=== PATIENT | female | born 1980 | race Caucasian/White ===

== ENCOUNTER 2017-06-01 03:31 | Day surgery (SDC) | payer MEDICARE, MEDICAID ==
[~2017-06-01] VITALS: Ht 165.1 cm; Wt 79.8 kg
[~2017-06-01 03:31] MED LIST: ACE3 PO; ACET500T68 PO; ARIP15TA PO; ARIP5TAB28 PO; AZEL6DRO9 OP; BUPXL150 PO; CARB10DR OP; CLIN30GE15 TP; CYA1000 PO; DIA5 PO; DOC100 PO; FLUO40CA76 PO; HYDR-2966 PO; HYDR12.561 PO; KET10 PO; LEVE500T32 PO; LEVO125T77 PO; LEVO175T38 PO; LOR10 PO; MELA5TAB20 PO; MV,C1TAB35 PO; NAPR220C12 PO; NORG1TAB5 PO; NORG1TAB97 PO; OMEG-11 PO; OMEP-218 PO; POLY1DRO10 OP; VIT1CAPS34 PO; [UNRECOGNIZED DRUG - CODE] PO; [UNRECOGNIZED DRUG - CODE] TP; [UNRECOGNIZED DRUG - OTHER] PO; [UNRECOGNIZED DRUG - OTHER] TOP
[2017-06-01] MEDS ORDERED: LIDOCAINE/SOD BICARB 8.4% SYR ID ONE (07:45)
[2017-06-01] MEDS ORDERED: MIDAZOLAM 2 MG/2 ML VIAL IVP PRN (07:45)
[2017-06-01] MEDS ORDERED: NORMOSOL R SOLN(*) 1000 ML BAG 1,000 ML IV PRN (07:45)
[2017-06-01] MEDS ORDERED: FAMOTIDINE 20 MG TAB PO ONE (07:45)
[2017-06-01 09:21] VITALS: BP 116/73
[2017-06-01] MEDS ORDERED: LIDOCAINE MPF 1% 5 ML VIAL ONE (10:17)
[2017-06-01] MEDS ORDERED: PROPOFOL EMUL(*) 10MG/ML 20 ML 60 ML ONE (10:17)
[2017-06-01 10:36] VITALS: BP 123/73
[2017-06-01] MEDS ORDERED: LR(*) 1000 ML BAG 1,000 ML IV ONE (10:41)
--- NOTE | 2017-06-01 10:41 | Post Operative Note ---
Operative Note - [facility] Operative Day Date: Jun 01, 2017 Time: 10:40 Physicians Surgeon: Telly Anesthesia: General, Zoya Diagnosis Pre-Op Diagnosis: Developmental delay Didelphyic uterus Post-Op Diagnosis: Same Procedure Procedure(s): Breast and pelvic EUA Specimen Removed:(Maybe N/A): GC/Chlam and bilateral pap smear Fluids Estimated Blood Loss: None FAHAD PERSAUD MD Jun 01, 2017 10:41
--- NOTE | 2017-06-01 10:43 | Short(Outpt) Discharge Summary ---
Discharge Summary Departure Discharge to: Home, Self Care Discharge Instructions Home Meds Reported Medications Polyvinyl Alcohol/Povidone/Pf (REFRESH CLASSIC EYE DROPS) 1 Each Droperette, 1 EACH OP QID 05/28/17 Cyanocobalamin (Vitamin B-12) (VITAMIN B-12) 1,000 Mcg Tablet, 1000 MCG PO MON- WED-FRI 05/28/17 Vit A/Vit C/Vit E/Zinc/Copper (PRESERVISION AREDS SOFTGEL) 1 Each Capsule, 1 EACH PO BID, CAPSULE 05/28/17 Melatonin (MELATONIN) 5 Mg Tab.rapdis, 5 MG PO HS 05/28/17 Naproxen Sodium (ALEVE) 220 Mg Capsule, 220 MG PO TID Y for PAIN, CAPSULE 05/28/17 Norgestimate-Ethinyl Estradiol (MONONESSA) 1 Each Tablet, 1 TAB PO DAILY 05/28/17 Levetiracetam (Spritam) 500 Mg Tab.susp, 1 TAB PO BID 05/28/17 Levothyroxine Sodium (SYNTHROID) 175 Mcg Tablet, 175 MCG PO QDAY 05/28/17 Hydrochlorothiazide (HYDROCHLOROTHIAZIDE) 12.5 Mg Tablet, 1 TAB PO QDAY, TAB 05/28/17 Azelastine Hcl (AZELASTINE HCL) 6 Ml Drops, 1 DROP OP BID 05/28/17 Aripiprazole (Aripiprazole) 15 Mg Tablet, 1 TAB PO HS 05/28/17 Acetaminophen (TYLENOL EXTRA STRENGTH) 500 Mg Tablet, 2 TAB PO Q4-6H Y for PAIN , TAB 05/28/17 Diazepam (Valium) 5 Mg Tab, 5 MG PO PRN 01/10/12 Calcium Carb/Vit D3/Minerals (CALCIUM +D & MIN CHEW TAB) 1 Each Tab.chew, 1 EACH PO DAILY 01/10/12 Clindamycin Phos (CLINDAMYCIN 1% TOPICAL SOLN (PATIENT OWN)) 60 Ml Solution, 60 ML TOP DAILY 01/10/12 Sod Lactate/Amm Lact/Pot Lact (AMLACTIN ULTRA BODY CREAM) 140 Gm Cream..g., 140 GM TP BID 01/10/12 Bupropion Hcl (Wellbutrin Xl) 150 Mg Tabcr, 150 MG PO QDAY 01/10/12 Fluoxetine Hcl (Prozac) 40 Mg Capsule, 40 MG PO QDAY 01/10/12 Omeprazole Magnesium (Prilosec Otc) 20 Mg Tablet.dr, 20 MG PO QDAY 01/10/12 Docosahexanoic Acid/Epa (Fish Oil 1,000 Mg Capsule) 1 Cap Capsule, 1 CAP PO BID 01/10/12 Docusate Sodium (Colace 100 Mg) 100 Mg Cap, 100 MG PO DAILY 01/10/12 Mv,Ca,Min/Iron Fum/Fa/Lyco/Lut (COMPLETE MULTI TABLET) 1 Each Tablet, 1 EACH PO DAILY 01/10/12 Loratadine (Claritin) 10 Mg Tab, 10 MG PO QDAY 01/10/12 Discontinued Reported Medications Ketorolac Tromethamine (Toradol) 10 Mg Tab, 10 MG PO QID, #12 01/12/12 Acetaminophen/Codeine (Tylenol #3 300-30 Mg) 1 Ea Tab, 1 - 2 EA PO Q4H Y, #30 1-2 TABLETS 01/12/12 Aripiprazole (Abilify) 5 Mg Tablet, 5 MG PO HS 01/10/12 Carboxymethyl/Glycerin/Poly80 (REFRESH OPTIVE ADVANCED DROPS) 10 Ml Drops, 1 DROP OP QID 01/10/12 Norgestimate-Ethinyl Estradiol (Ortho-Cyclen) 1 Tab Tablet, 1 TAB PO DAILY 01/10/12 Hydrochlorothiazide (Hydrochlorothiazide) 25 Mg Tablet, 25 MG PO DAILY 01/10/12 [Maxi Vision Ocular] No Conflict Check, 1 CAPSULE PO BID 01/10/12 Levothyroxine Sodium (Synthroid) 125 Mcg Tablet, 125 MCG PO QDAY 01/10/12 Discontinued Scripts Clindamycin Phosphate (CLINDAMYCIN PHOSPHATE) 30 Gm Gel..gram., 60 GM TP BID for 30 Days, #1 TUBE 2 Refills Prov:JANEL PLATT 05/10/17 Diet: Regular Activity: As Tolerated FAHAD PERSAUD MD Jun 01, 2017 10:43
[2017-06-01 10:45] VITALS: BP 119/77
[2017-06-01] MEDS ORDERED: METOCLOPRAMIDE 10 MG/2 ML SDV IVP PRN (10:45)
[2017-06-01] MEDS ORDERED: IBUPROFEN 800 MG TAB PO SCH (10:45)
[2017-06-01 11:00] VITALS: BP 118/72
[2017-06-01 11:11] VITALS: BP 121/73
[2017-06-01 11:13] VITALS: BP 96/72
--- NOTE | 2017-06-01 13:55 | OPERATIVE REPORT 1 ---
EVENT DATE: June 01, 2017 SURGEON: Mary Ann Varner MD ANESTHESIOLOGIST: Ahmet Kenny MD ANESTHESIA: General PREOPERATIVE DIAGNOSES 1. Didelphic uterus. 2. Developmental delay and inability to tolerate in office exam. POSTOPERATIVE DIAGNOSES 1. Didelphic uterus. 2. Developmental delay and inability to tolerate in office exam. PROCEDURE PERFORMED Breast and pelvic exam under anesthesia. FINDINGS A longitudinal vaginal septum with didelphic uterus. Cervices are nulliparous and without lesion. Normal breast exam without masses or lesions. SPECIMENS REMOVED 1. Bilateral Pap smears with high-risk HPV testing. 2. Gonorrhea and chlamydia. ESTIMATED BLOOD LOSS None. INDICATIONS FOR PROCEDURE This patient is a 37-year-old 0 who presents to clinic with new findings of a didelphic uterus. She has never had a Pap smear before, and has a difficult time with breast exams due to her developmental delay. After discussing her options, the patient elected to proceed with examination under anesthesia as stated above. PROCEDURE The patient was properly identified and taken to the operating room. She was placed in the dorsal lithotomy position. A breast exam was then performed, which revealed normal bilateral breast tissue without any lumps or masses. A pelvic exam was then performed. The external genitalia appeared within normal limits without lesion. The longitudinal vaginal septum was noted to be extending all the way to the vaginal introitus. The patient's right-sided vagina was visualized with a pediatric speculum, as well as the cervix, which was nulliparous without lesion. The vaginal tissue appeared healthy. A Pap smear with a brushing and broom were then obtained of the right cervix. The pediatric speculum was then removed and then placed in the left side of the vagina. The left cervix was visualized without lesion, and a Pap smear and gonorrhea and chlamydia were then obtained. A bimanual exam revealed a small uterus without any masses. There were no adnexal masses. This procedure was then terminated. The patient tolerated this procedure well and recovered in the post anesthesia care unit. OWEN
== END 2017-06-01 11:30 | disposition home or self-care (01) ==
LOC: OR 03:31
PROVIDERS: ATTEND Obstetrics & Gynecology
DX: Q51.2 Other doubling of uterus (principal)
CPT/HCPCS: 36415; 84703; 87491; 87591; A9270; G0101; J2001; J2704; Q0091; 82310; 82374; 82435; 82565; 82947; 84132; 84295; 84520

== ENCOUNTER → 2017-07-31 | Outpatient (CLI) | payer MEDICARE, MEDICAID | LOC: LAB 10:00 | PROVIDERS: ATTEND Surgery | DX: L81.4 Other melanin hyperpigmentation (principal) | CPT/HCPCS: 88305 ==

== ENCOUNTER 2018-01-07 20:07 | Emergency (ER) | payer MEDICARE, MEDICAID ==
--- NOTE | 2018-01-07 20:11 | ER Report ---
History and Physical Time Seen By MD: 20:10 HPI/ROS CHIEF COMPLAINT: Lower abdominal pain, bleeding in stool or urine HISTORY OF PRESENT ILLNESS: 37-year-old female with developmentally delay resident of [place]. Brought in by caregiver with several days of urinary burning. Patient notes blood in the bowl. She's unsure if it's in her urine menstrual flow or rectal bleeding. Patient's on no blood thinners. Patient has a recent history of a breast exam and pelvic exam under general anesthesia by Dr. Varner. Caregiver notes no fever, chills or vomiting. Patient notes some urinary burning. She denies rectal bleeding. REVIEW OF SYSTEMS: Respiratory: No cough, no dyspnea. Cardiovascular: No chest pain, no palpitations. Gastrointestinal: As above Musculoskeletal: No back pain. Allergies: Coded Allergies: No Known Drug Allergies (Unverified , 01/10/12) Home Meds Reported Medications Polyvinyl Alcohol/Povidone/Pf (REFRESH CLASSIC EYE DROPS) 1 Each Droperette, 1 EACH OP QID 05/28/17 Cyanocobalamin (Vitamin B-12) (VITAMIN B-12) 1,000 Mcg Tablet, 1000 MCG PO MON- WED-Sun05/28/17 Vit A/Vit C/Vit E/Zinc/Copper (PRESERVISION AREDS SOFTGEL) 1 Each Capsule, 1 EACH PO BID, CAPSULE 05/28/17 Melatonin (MELATONIN) 5 Mg Tab.rapdis, 5 MG PO HS 05/28/17 Naproxen Sodium (ALEVE) 220 Mg Capsule, 220 MG PO TID Y for PAIN, CAPSULE 05/28/17 Norgestimate-Ethinyl Estradiol (MONONESSA) 1 Each Tablet, 1 TAB PO DAILY 05/28/17 Levetiracetam (Spritam) 500 Mg Tab.susp, 1 TAB PO BID 05/28/17 Levothyroxine Sodium (SYNTHROID) 175 Mcg Tablet, 175 MCG PO QDAY 05/28/17 Hydrochlorothiazide (HYDROCHLOROTHIAZIDE) 12.5 Mg Tablet, 1 TAB PO QDAY, TAB 05/28/17 Azelastine Hcl (AZELASTINE HCL) 6 Ml Drops, 1 DROP OP BID 05/28/17 Aripiprazole (Aripiprazole) 15 Mg Tablet, 1 TAB PO HS 05/28/17 Acetaminophen (TYLENOL EXTRA STRENGTH) 500 Mg Tablet, 2 TAB PO Q4-6H Y for PAIN , TAB 05/28/17 Diazepam (Valium) 5 Mg Tab, 5 MG PO PRN 01/10/12 Calcium Carb/Vit D3/Minerals (CALCIUM +D & MIN CHEW TAB) 1 Each Tab.chew, 1 EACH PO DAILY 01/10/12 Clindamycin Phos (CLINDAMYCIN 1% TOPICAL SOLN (PATIENT OWN)) 60 Ml Solution, 60 ML TOP DAILY 01/10/12 Sod Lactate/Amm Lact/Pot Lact (AMLACTIN ULTRA BODY CREAM) 140 Gm Cream..g., 140 GM TP BID 01/10/12 Bupropion Hcl (Wellbutrin Xl) 150 Mg Tabcr, 150 MG PO QDAY 01/10/12 Fluoxetine Hcl (Prozac) 40 Mg Capsule, 40 MG PO QDAY 01/10/12 Omeprazole Magnesium (Prilosec Otc) 20 Mg Tablet.dr, 20 MG PO QDAY 01/10/12 Docosahexanoic Acid/Epa (Fish Oil 1,000 Mg Capsule) 1 Cap Capsule, 1 CAP PO BID 01/10/12 Docusate Sodium (Colace 100 Mg) 100 Mg Cap, 100 MG PO DAILY 01/10/12 Mv,Ca,Min/Iron Fum/Fa/Lyco/Lut (COMPLETE MULTI TABLET) 1 Each Tablet, 1 EACH PO DAILY 01/10/12 Loratadine (Claritin) 10 Mg Tab, 10 MG PO QDAY 01/10/12 Past Medical/Surgical History See paperwork from [facility] Reviewed Nurses Notes: Yes Old Medical Records Reviewed: Yes Hx Smoking: No Smoking Status: Never Smoker Exposure to Second Hand Smoke?: No Hx Alcohol Use: No Constitutional Vital Sign - Last 24 Hours 01/07/18 20:13 Temp 98.7 Pulse 75 Resp 12 B/P (MAP) 109/91 Pulse Ox 96 O2 Delivery Room Air Physical Exam General Appearance: The patient is alert, has no immediate need for airway protection and no current signs of toxicity. HEENT: Pupils equal and round no injection. Oropharynx without redness or exudate Respiratory: Chest is non tender, lungs are clear to auscultation. Cardiac: regular rate and rhythm Gastrointestinal: Abdomen is soft and non tender, no masses, bowel sounds normal. Musculoskeletal: Neck: Neck is supple and non tender. Extremities have full range of motion and are non tender. Skin: No rashes or lesions. DIFFERENTIAL DIAGNOSIS: After history and physical exam differential diagnosis was considered for abdominal pain including but not limited to appendicitis, cholecystitis, gastritis and urinary tract infection. Additionally,abdominal pain in a female including but not limited to ovarian cyst, pelvic inflammatory disease, ovarian torsion, urinary tract infection, and appendicitis. Medical Decision Making Data Points Laboratory Hematology Test 01/07/18 20:11 Urine Color Yellow Urine Clarity Slightly-cloudy Urine pH 5.0 pH (4.8-9.5) Urine Specific [place] 1.017 Urine Protein Negative mg/dL (NEGATIVE) Urine Glucose (UA) Negative mg/dL (NEGATIVE) Urine Ketones Negative mg/dL (NEGATIVE) Urine Blood Negative (NEGATIVE) Urine Nitrite Negative (NEGATIVE) Urine Bilirubin Negative (NEGATIVE) Urine Urobilinogen 2.0 mg/dL (0.2-1.9) Urine Leukocyte Esterase Trace (NEGATIVE) Urine RBC <1 /HPF (0-2/HPF) Urine WBC <1 /HPF (0-5/HPF) Urine Squamous Epithelial Cells Many /LPF (</=FEW) Urine Bacteria Few /HPF (NONE-FEW) Urine Mucus Few /HPF (NONE-FEW) Urine HCG, Qualitative Negative (NEGATIVE) Chemistry Test 01/07/18 20:11 Urine Color Yellow Urine Clarity Slightly-cloudy Urine pH 5.0 pH (4.8-9.5) Urine Specific [place] 1.017 Urine Protein Negative mg/dL (NEGATIVE) Urine Glucose (UA) Negative mg/dL (NEGATIVE) Urine Ketones Negative mg/dL (NEGATIVE) Urine Blood Negative (NEGATIVE) Urine Nitrite Negative (NEGATIVE) Urine Bilirubin Negative (NEGATIVE) Urine Urobilinogen 2.0 mg/dL (0.2-1.9) Urine Leukocyte Esterase Trace (NEGATIVE) Urine RBC <1 /HPF (0-2/HPF) Urine WBC <1 /HPF (0-5/HPF) Urine Squamous Epithelial Cells Many /LPF (</=FEW) Urine Bacteria Few /HPF (NONE-FEW) Urine Mucus Few /HPF (NONE-FEW) Urine HCG, Qualitative Negative (NEGATIVE) Urinalysis Test 01/07/18 20:11 Urine Color Yellow Urine Clarity Slightly-cloudy Urine pH 5.0 pH (4.8-9.5) Urine Specific [place] 1.017 Urine Protein Negative mg/dL (NEGATIVE) Urine Glucose (UA) Negative mg/dL (NEGATIVE) Urine Ketones Negative mg/dL (NEGATIVE) Urine Blood Negative (NEGATIVE) Urine Nitrite Negative (NEGATIVE) Urine Bilirubin Negative (NEGATIVE) Urine Urobilinogen 2.0 mg/dL (0.2-1.9) Urine Leukocyte Esterase Trace (NEGATIVE) Urine RBC <1 /HPF (0-2/HPF) Urine WBC <1 /HPF (0-5/HPF) Urine Squamous Epithelial Cells Many /LPF (</=FEW) Urine Bacteria Few /HPF (NONE-FEW) Urine Mucus Few /HPF (NONE-FEW) Urine HCG, Qualitative Negative (NEGATIVE) ED Course/Re-evaluation ED Course Patient admitted to an examination room. H&P was done. Patient has a benign abdominal examination. Urinalysis was ordered. Urinalysis is unremarkable for hematuria or infection. Urine test is negative. Patient's caregiver suggested it might be rectal bleeding. However, I do not think the patient will tolerate a rectal exam with her history of having to undergo general anesthetic for breast exam and a pelvic exam. Caregiver from [facility] to monitor patient's urine and stool for evidence of blood. GC, chlamydia will be added to the urine. Although I think it's unlikely the etiology of her lower abdominal pain. Caregiver advised to follow-up with primary care if unimproved in 3-5 days. Decision to Disposition Date: Jan 07, 2018 Decision to Disposition Time: 20:44 Depart Departure Latest Vital Signs Vital Signs Date Time Temp Pulse Resp B/P (MAP) Pulse Ox O2 Delivery O2 Flow Rate FiO2 01/07/18 20:13 98.7 75 12 109/91 96 Room Air Impression: Primary Impression: Lower abdominal pain Additional Impressions: Rectal bleeding Developmental delay Condition: Improved Disposition: HOME OR SELF-CARE Referrals: KIAN RIVAS PA-C (PCP) Patient Instructions: Rectal Bleeding (ED) Additional Instructions: Monitor stools and urine for further evidence of bleeding Follow-up with primary care to call [facility] for any further episodes of bleeding. Patient may require colonoscopy Problem Qualifiers SUN TORREZ DO Jan 07, 2018 20:11
[2018-01-07 20:13] VITALS: BP 109/91
== END 2018-01-07 20:55 | disposition home or self-care (01) ==
LOC: ER 20:40
DX: R10.30 Lower abdominal pain, unspecified (principal); K62.5 Hemorrhage of anus and rectum
CPT/HCPCS: 81001; 81025; 87491; 87591; 99282

== ENCOUNTER → 2018-11-04 | Outpatient (REF) | payer MEDICARE, MEDICAID | LOC: ZZIMHLAB 14:51 | PROVIDERS: ATTEND Family Medicine | DX: N39.0 Urinary tract infection, site not specified (principal); B96.89 Other specified bacterial agents as the cause of diseases classified elsewhere | CPT/HCPCS: 87077; 87088; 87186 ==

== ENCOUNTER 2018-11-29 20:51 | Emergency (ER) | payer MEDICARE, MEDICAID ==
--- NOTE | 2018-11-29 21:14 | ER Report ---
History and Physical Time Seen By MD: 21:12 Hx. of Stated Complaint: PT WAS SITTING IN PILE OF BLACK ANTS AND WAS BITEN ON LEFT SIDE OF BUTT. HPI/ROS CHIEF COMPLAINT: insect bite buttocks HISTORY OF PRESENT ILLNESS: This is a 38 year old female. She was bitten on the left buttock by an insect, insect thought to have been black in color, but did not see well. Some redness and pain in the area. Otherwise without symptoms of shortness of breath, nausea/vomiting, dizziness, fevers. This bite just happened and came right to the ER. They were concerned that this was a Black spider bite. Allergies: Coded Allergies: No Known Drug Allergies (Unverified , 01/10/12) Home Meds Active Scripts Clindamycin Phosphate (CLINDAMYCIN PHOSPHATE) 30 Gm Gel..gram., 1 ANAND TP BID for 30 Days, #1 TUBE 3 Refills Prov:LENNIEEANJANEL NPC 07/11/18 Reported Medications Polyvinyl Alcohol/Povidone/Pf (REFRESH CLASSIC EYE DROPS) 1 Each Droperette, 1 EACH OP QID 05/28/17 Cyanocobalamin (Vitamin B-12) (VITAMIN B-12) 1,000 Mcg Tablet, 1000 MCG PO MON-WED-Sun05/28/17 Vit A/Vit C/Vit E/Zinc/Copper (PRESERVISION AREDS SOFTGEL) 1 Each Capsule, 1 EACH PO BID, CAPSULE 05/28/17 Melatonin (MELATONIN) 5 Mg Tab.rapdis, 5 MG PO HS 05/28/17 Naproxen Sodium (ALEVE) 220 Mg Capsule, 220 MG PO TID PRN for PAIN, CAPSULE 05/28/17 Norgestimate-Ethinyl Estradiol (MONONESSA) 1 Each Tablet, 1 TAB PO DAILY 05/28/17 Levetiracetam (Spritam) 500 Mg Tab.susp, 1 TAB PO BID 05/28/17 Levothyroxine Sodium (SYNTHROID) 175 Mcg Tablet, 175 MCG PO QDAY 05/28/17 Hydrochlorothiazide (HYDROCHLOROTHIAZIDE) 12.5 Mg Tablet, 1 TAB PO QDAY, TAB 05/28/17 Azelastine Hcl (AZELASTINE HCL) 6 Ml Drops, 1 DROP OP BID 05/28/17 Aripiprazole (Aripiprazole) 15 Mg Tablet, 1 TAB PO HS 05/28/17 Acetaminophen (TYLENOL EXTRA STRENGTH) 500 Mg Tablet, 2 TAB PO Q4-6H PRN for PAIN, TAB 05/28/17 Diazepam (Valium) 5 Mg Tab, 5 MG PO PRN 01/10/12 Calcium Carb/Vit D3/Minerals (CALCIUM +D & MIN CHEW TAB) 1 Each Tab.chew, 1 EACH PO DAILY 01/10/12 Clindamycin Phos (CLINDAMYCIN 1% TOPICAL SOLN (PATIENT OWN)) 60 Ml Solution, 60 ML TOP DAILY 01/10/12 Sod Lactate/Amm Lact/Pot Lact (AMLACTIN ULTRA BODY CREAM) 140 Gm Cream..g., 140 GM TP BID 01/10/12 Bupropion Hcl (Wellbutrin Xl) 150 Mg Tabcr, 150 MG PO QDAY 01/10/12 Fluoxetine Hcl (Prozac) 40 Mg Capsule, 40 MG PO QDAY 01/10/12 Omeprazole Magnesium (Prilosec Otc) 20 Mg Tablet.dr, 20 MG PO QDAY 01/10/12 Docosahexanoic Acid/Epa (Fish Oil 1,000 Mg Capsule) 1 Cap Capsule, 1 CAP PO BID 01/10/12 Docusate Sodium (Colace 100 Mg) 100 Mg Cap, 100 MG PO DAILY 01/10/12 Mv,Ca,Min/Iron Fum/Fa/Lyco/Lut (COMPLETE MULTI TABLET) 1 Each Tablet, 1 EACH PO DAILY 01/10/12 Loratadine (Claritin) 10 Mg Tab, 10 MG PO QDAY 01/10/12 Reviewed Nurses Notes: Yes Hx Smoking: No Smoking Status: Never Smoker Exposure to Second Hand Smoke?: No Hx Substance Use Disorder: No Hx Alcohol Use: No Constitutional Vital Sign - Last 24 Hours 11/29/18 11/29/18 11/29/18 11/29/18 20:51 20:54 21:00 21:06 Temp 98.3 Pulse 78 79 80 Resp 16 B/P (MAP) 118/73 (88) 118/73 118/68 (85) Pulse Ox 95 95 97 O2 Delivery Room Air 11/29/18 11/29/18 11/29/18 21:15 21:20 21:30 Pulse 76 B/P (MAP) 105/75 (85) 107/47 (67) Pulse Ox 97 Physical Exam General: Alert, no acute distress. Vital signs are stable. Skin: Redness and small central area that could be a bite. No induration. No pustules or abscess or necrosis. Medical Decision Making ED Course/Re-evaluation ED Course Vitals stable, no other symptoms other than local irritation. Recommended antihistamines and hydrocortisone cream. Decision to Disposition Date: Nov 29, 2018 Decision to Disposition Time: 21:25 Depart Departure Latest Vital Signs Vital Signs Date Time Temp Pulse Resp B/P (MAP) Pulse Ox O2 Delivery O2 Flow Rate FiO2 11/29/18 21:30 107/47 (67) 11/29/18 21:20 76 97 11/29/18 20:54 98.3 16 Room Air Impression: Primary Impression: Insect bite Condition: Improved Disposition: HOME OR SELF-CARE Referrals: KIAN RIVAS PA-C (PCP) Patient Instructions: Insect Bite or Sting (ED) Additional Instructions: Use [id number] hydrocortisone cream, applied twice a day to help with inflammation. You can also use some Benadryl cream. [id number] Benadryl tablets, 25 mg, 2 tablets every 6 hours as needed for itching and to help with inflammation. Problem Qualifiers Primary Impression: Insect bite Encounter type: initial encounter Site of insect bite: unspecified site Qualified Codes: W57.XXXA - Bitten or stung by nonvenomous insect and other nonvenomous arthropods, initial encounter TODD OCHOA MD Nov 29, 2018 21:14
[2018-11-29 21:30] VITALS: BP 107/47
== END 2018-11-29 21:35 | disposition home or self-care (01) ==
LOC: ER 21:00
DX: S30.860A Insect bite (nonvenomous) of lower back and pelvis, initial encounter (principal); W57.XXXA Bitten or stung by nonvenomous insect and other nonvenomous arthropods, initial encounter
CPT/HCPCS: 99281